=== PATIENT | male | born 1950 | race Caucasian/White ===

== ENCOUNTER → 2025-01-08 09:54 | Outpatient (REF) | payer MEDICARE, BC, SELFPAY | LOC: RAD 09:54 | PROVIDERS: ATTENDING PHYSICIAN Internal Medicine Rheumatology; FAMILY PHYSICIAN Internal Medicine | DX: M19.90 Unspecified osteoarthritis, unspecified site (principal); M79.89 Other specified soft tissue disorders | CPT/HCPCS: 76882 ==